=== PATIENT | male | born 1995 | race Two or more races ===

== ENCOUNTER 2024-07-06 00:22 | Emergency (ER) | payer MEDICAID, SELFPAY ==
[2024-07-06 00:24] VITALS: BMI 23.3
[2024-07-06 00:59] VITALS: BP 115/73; PULSE 85; RESP 18; TEMP 36.8; O2SAT 98
[2024-07-06] MEDS: NAPROXEN 250 MG TABLET 500 MG PO (01:55)
[2024-07-06] MEDS: AMOXICILLIN/POT CLAV 875 TABLET 1 TAB PO (01:56)
--- NOTE | 2024-07-06 05:39 | EDNOTE_ITS ---
Upper Extremity Injury RME/HPI General Chief Complaint: Hand/Wrist Problems Stated Complaint: S/P HAND SURGERY Time Seen by Provider: 07/06/24 01:38 Arrival date/time: 07/06/24 00:22 28M with no significant PMH presents to ED with K wire from hand surgery disappearing into skin today. Surgeon was Dr. Barbosa at [facility]. Patient noticed some pain and swelling. Patient has follow-up in 10 days. Limitations: no limitations Related Data Previous Rx's ?Medication ?Instructions ?Recorded amoxicillin 875 mg-potassium 1 tab PO BID 7 days #14 tabs 07/06/24 clavulanate 125 mg tablet Allergies Allergy/AdvReac Type Severity Reaction Status Date / Time No Known Allergies Allergy Verified 04/29/24 16:34 Review of Systems Review of Systems Systems Reviewed: All systems reviewed, normal except as documented Constitutional Constitutional: Reports system reviewed and no additional complaints, except as documented, Denies fever(s) and Denies headache(s) ENT Ears, Nose, Mouth, and Throat: Denies disequilibrium and Denies headache(s) Cardiovascular Cardiovascular: Reports system reviewed and no additional complaints, except as documented, Denies chest pain and Denies dyspnea Respiratory Respiratory: Reports system reviewed and no additional complaints, except as documented, Denies cough and Denies dyspnea Gastrointestinal Gastrointestinal: Reports system reviewed and no additional complaints, except as documented, Denies abdominal pain, Denies nausea and Denies vomiting Integumentary/Breasts Skin/Breast: Reports as per HPI and Reports skin pain Neurologic Neurologic: Reports system reviewed and no additional complaints, except as documented, Denies confusion, Denies disequilibrium and Denies headache(s) Psychiatric Psychiatric: Denies confusion Past Medical History Past Medical History NEUROLOGIC: Negative Neurological Disorders CARDIAC: Negative Cardiac Disorders or Congestive Heart Failure RESPIRATORY: Negative Chronic Obstructive Pulmonary Disease (COPD) GENITOURINARY: Negative Renal Disease ENDOCRINE: Negative Diabetes Mellitus Type 1 or Diabetes Mellitus Type 2 Social History SMOKING STATUS: Never smoker ED Exam General Limitations: Present no limitations General appearance: Present alert and in no apparent distress Head Head exam: Present atraumatic Eye Eye exam: Present normal appearance, PERRL and EOMI ENT ENT exam: Present normal exam, normal oropharynx and mucous membranes moist Neck Neck exam: Present normal inspection, full ROM and trachea midline Chest Chest inspection: Present normal inspection and symmetric chest wall rise Respiratory Respiratory exam: Present normal lung sounds bilaterally Cardiovascular Cardiovascular exam: Present regular rate, normal rhythm and normal heart sounds Abdominal Exam Abdominal exam: Present soft and normal bowel sounds Extremities Exam Extremities exam: Present full ROM Expanded Upper Extremity Exam Hand exam: Present full ROM (R), tenderness, swelling and erythema Back Exam Back exam: Present normal inspection and full ROM Neurological Exam Neurological exam: Present alert, oriented X3 and CN II-XII intact Psychiatric Psychiatric exam: Present normal affect and normal mood Skin Skin exam: Present warm, dry, intact and normal color Course Quality Measures none Orders Category Date Time Status Amoxicillin/Pot Clav 875 [Augmentin 875] Med 07/06/24 01:51 Discontinued 1 tab PO X1 ONE Naproxen [Naprosyn] Med 07/06/24 01:51 Discontinued 500 mg PO X1 ONE Vital Signs Vital signs: Vital Signs Temperature 98.2 F 07/06/24 00:59 Pulse Rate 85 07/06/24 00:59 Respiratory Rate 18 07/06/24 00:59 Blood Pressure 115/73 07/06/24 00:59 Pulse Oximetry (%) 98 07/06/24 00:59 Oxygen Delivery Method Room Air 07/06/24 00:59 O2 at 98% on RA and WNLs Extremity Injury MDM Narrative MDM Narrative:: 28M with no significant PMH presents to ED with K wire from hand surgery disappearing into skin today. Surgeon was Dr. Barbosa at [facility] [place]. Patient noticed some pain and swelling. Patient has follow-up in 10 days. Physical exam reveals mild R hand swelling, tenderness, and redness. ROM intact. Patient is afebrile, calm, and alert. Spoke to Dr. Solano, Dr. Barbosa's partner, who suggests Augmentin and outpatient follow-up. Patient data External records reviewed:: [facility] previous records Clinical information provided by:: patient Social determinants that could affect healthcare access:: none Patient has the following chronic illnesses:: none How is presenting disease/condition affected by chronic disease/condition?: no chronic disease Evaluation data The following diagnostics were reviewed and interpreted by me:: other (specify) (none) Lab and/or radiology exams considered but not ordered:: not ordered Interpretation Summary: n/a Medications / Prescriptions Medications or Prescriptions considered but not ordered:: ordered Medication administrations:: Medication Administration History Discontinued Medications Amoxicillin/Clavulanate Potassium (Amoxicillin/Pot Clav 875 Tablet) 1 tab PO X1 ONE Stop: 07/06/24 01:52 Last Admin: 07/06/24 01:56 Dose: 1 tab Documented By: ELENA Naproxen (Naproxen 250 Mg Tablet) 500 mg PO X1 ONE Stop: 07/06/24 01:52 Last Admin: 07/06/24 01:55 Dose: 500 mg Documented By: ELENA above Consultations Consultation(s) initiated? (list below): Yes Diagnosis Upper Extremity Injury Differential Diagnosis: sprain and strain of wrist, fracture of wrist, finger sprain, dislocation of finger, Colles' fracture, fracture of hand, dislocation of shoulder, fracture of humerus, fracture of clavicle and other (postop exam) Most likely diagnosis given after review of the tests above:: postop exam Admission Indicated Admission indicated?: not indicated Admission Request Was there a request for admission?: No Disposition Plan Disposition Plan: Discharge Discharge Attestation Discharge Attestation: The patient and all family members were given an opportunity to ask questions and understood the discharge instructions. Discharge instructions specifically effects, indications for sooner follow up or return to the emergency department, and the expected course of current diagnosis. Patient condition: Stable Discharge Plan Plan Patient Disposition: HOME (Self Care) Disposition Comment: Stable Prescriptions/Referrals Prescriptions/Med Rec: New amoxicillin-pot clavulanate 875-125 mg tablet 1 tab PO BID 7 Days Qty: 14 0RF Problem List Clinical Impression: Postoperative examination Patient/Caregiver Discharge Instructions Education Materials: ED Wound Check (No Infection) Additional Instructions: Please follow-up with PCP within 24-48 hours and return immediately if symptoms worsen. Print Language: Honduran Stand Alone Forms: Patient Portal Info Letter JUAN/SHRUTHI Supervising Physician JUAN/SHRUTHI Supervising Physician: Dr. Hernandez
== END 2024-07-06 01:58 | disposition home or self-care (01) ==
LOC: SERX 02:10
PROVIDERS: Emergency Provider Emergency Medicine; PCP Family Medicine
DX: Z47.89 Encounter for other orthopedic aftercare (principal)
CPT/HCPCS: 80053; 83605; 84145; 85025; 99283; A9270

== ENCOUNTER → 2024-07-13 | Outpatient (CLI) | payer MEDICAID, SELFPAY ==
--- NOTE | 2024-07-13 10:47 | XR_ITS ---
Examination: Hand, right 3 views Technique: Hand AP, oblique, lateral 3 views Date and time of exam: July 13, 2024 1056 hours Comparison May 10, 2024 INDICATIONS: Acute fracture proximal phalanx third digit May 10, 2024, postop reduction internal fixation FINDINGS: Significant healing fracture proximal phalanx third digit with stable and satisfactory alignment Orthopedic hardware satisfactory position IMPRESSION: Significant healing fracture proximal phalanx third digit with stable and satisfactory alignment
--- NOTE | 2024-07-13 10:47 | XR_ITS ---
Examination: Wrist, right 3 views Technique: Wrist AP, oblique, lateral 3 views Date and time of exam: July 13, 2024 1056 hours Comparison May 10, 2024 INDICATIONS: History acute fracture proximal phalanx third digit May 10, 2024 wrist and hand pain FINDINGS: Mild osteopenia. No wrist fracture or dislocation IMPRESSION: No wrist fracture or dislocation
== END | disposition home or self-care (01) ==
PROVIDERS: PCP Nurse Practitioner Gerontology; Referring Provider Nurse Practitioner Gerontology; Visit Provider Nurse Practitioner Gerontology
DX: S62.612A Displaced fracture of proximal phalanx of right middle finger, initial encounter for closed fracture (principal); X58.XXXA Exposure to other specified factors, initial encounter
CPT/HCPCS: 73110; 73130

== ENCOUNTER 2024-08-07 14:00 | Outpatient (RCR) | payer MEDICAID, SELFPAY ==
--- NOTE | 2024-07-18 13:15 | PTNOTE_ITS ---
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 Pt reports stiffness with bending the finger and difficulty gripping. This limits HH chore tolerance. 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 Pt requires skilled therapy in order to meet goals and has good rehab potential. Short Term and Care Home Goals 1. Ind with HEP 2. Improved digit flexion to 90 deg MCP, PIP and 80 deg DIP to make full fist 3. Full extension of long finger 4. Improved home health outreach coordinator strength to at least 45 lbs on R Treatment Plan ? 1. Manual therapy ? 2. Therex ? 3. Modalities as indicated, moist heat, ice, estim Frequency and Duration: 2x a week for 12 visits plus eval Certification Dates: 07/18/24 to 10/14/24 Procedure Charges OP PT Eval Mod Complex 30 minutes: Yes
--- NOTE | 2024-07-23 12:05 | PT.ODAYNRPT ---
PT Outpatient Daily Note OP Daily Note Outpatient Physical Therapy Treatment Date: 07/23/24 Visit Reasons: RIGHT LONG FINGER PAIN Subjective: Doing HEP, limited long digit flexion Objective: See F/S for therex MT: PROM into long digit flexion x5' Assessment: Improved flexion of R long finger after manual therapy Plan: Continue per POC Length of Time (minutes) of Treatment: 30 Minutes Procedure Charges Therapeutic Exercise 30 minutes: Yes
--- NOTE | 2024-08-07 14:30 | PT.ODAYNRPT ---
PT Outpatient Daily Note OP Daily Note Outpatient Physical Therapy Treatment Date: 08/07/24 Visit Reasons: RIGHT LONG FINGER PAIN Subjective: Pt reports L finger continues to be stiff. Objective: Please see flow sheet for ther ex list. Assessment: Performed PROM into digit flexion to pt tolerance. Pt encouraged to continue with manual stretches for HEP and to look into getting a instructional support technician ball for daily use. Plan: Continue with POc. Length of Time (minutes) of Treatment: 30 Minutes Procedure Charges Therapeutic Exercise 30 minutes: Yes
== END 2024-08-10 23:59 | disposition home or self-care (01) ==
LOC: CPTX 14:00
PROVIDERS: PCP Surgery; Referring Provider Surgery; Visit Provider Surgery
DX: M79.644 Pain in right finger(s) (principal); M25.531 Pain in right wrist; M79.641 Pain in right hand; X58.XXXD Exposure to other specified factors, subsequent encounter; S62.612D Displaced fracture of proximal phalanx of right middle finger, subsequent encounter for fracture with routine healing
CPT/HCPCS: 97110; 97162

== ENCOUNTER 2025-03-06 13:36 | Emergency (ER) | payer MEDICAID, SELFPAY ==
[2025-03-06 13:47] VITALS: BP 130/74; PULSE 60; RESP 16; TEMP 36.7; O2SAT 99
--- NOTE | 2025-03-06 13:50 | PD.EDANIML ---
ED Animal Bite RME/HPI General Chief Complaint: Animal Bite Stated Complaint: ANIMAL BITE; WANTS RABIES SHOT Time Seen by Provider: 03/06/25 13:50 Arrival date/time: 03/06/25 13:36 29-year-old male with no significant medical problems presents to the Emergency Department today stating 2 days ago he was walking by a house and the dog ran out of the fence and bit his left leg patient came to the ER for further evaluation Limitations: no limitations Related Data Previous Rx's ?Medication ?Instructions ?Recorded amoxicillin 875 mg-potassium 1 tab PO BID 5 days #10 tabs 03/06/25 clavulanate 125 mg tablet ibuprofen 600 mg tablet 600 mg PO Q6H #30 tabs 03/06/25 Allergies Allergy/AdvReac Type Severity Reaction Status Date / Time No Known Allergies Allergy Verified 03/06/25 13:39 Review of Systems Review of Systems Systems Reviewed: All systems reviewed, normal except as documented Constitutional Constitutional: Reports system reviewed and no additional complaints, except as documented, Denies fever(s) and Denies headache(s) Eyes Eyes: Reports system reviewed and no additional complaints, except as documented and Denies blurry vision ENT Ears, Nose, Mouth, and Throat: Reports system reviewed and no additional complaints, except as documented, Denies headache(s), Denies nasal congestion and Denies nasal discharge Cardiovascular Cardiovascular: Reports system reviewed and no additional complaints, except as documented, Denies chest pain and Denies dyspnea Respiratory Respiratory: Reports system reviewed and no additional complaints, except as documented, Denies chest congestion, Denies cough and Denies dyspnea Gastrointestinal Gastrointestinal: Reports system reviewed and no additional complaints, except as documented and Denies abdominal pain Musculoskeletal Musculoskeletal: Reports system reviewed and no additional complaints, except as documented, Denies deformity, Denies numbness, Reports stiffness, Denies tingling and Reports other (dog bite left leg) Integumentary/Breasts Skin/Breast: Reports system reviewed and no additional complaints, except as documented and Denies rash Neurologic Neurologic: Reports system reviewed and no additional complaints, except as documented, Reports as per HPI, Denies headache(s), Denies numbness and Denies tingling Past Medical History Past Medical History NEUROLOGIC: Negative Neurological Disorders CARDIAC: Negative Cardiac Disorders or Congestive Heart Failure RESPIRATORY: Negative Chronic Obstructive Pulmonary Disease (COPD) GENITOURINARY: Negative Renal Disease ENDOCRINE: Negative Diabetes Mellitus Type 1 or Diabetes Mellitus Type 2 Social History SMOKING STATUS: Never smoker ED Exam General Limitations: Present no limitations General appearance: Present alert and in no apparent distress Head Head exam: Present atraumatic Eye Eye exam: Present normal appearance, PERRL and EOMI ENT ENT exam: Present normal exam, normal oropharynx and mucous membranes moist Neck Neck exam: Present normal inspection, full ROM and trachea midline Chest Chest inspection: Present normal inspection and symmetric chest wall rise Respiratory Respiratory exam: Present normal lung sounds bilaterally Cardiovascular Cardiovascular exam: Present regular rate, normal rhythm and normal heart sounds Abdominal Exam Abdominal exam: Present soft and normal bowel sounds Extremities Exam Extremities exam: Present normal inspection and full ROM Back Exam Back exam: Present normal inspection and full ROM Neurological Exam Neurological exam: Present alert, oriented X3 and CN II-XII intact Psychiatric Psychiatric exam: Present normal affect and normal mood Skin Skin exam: Present warm, dry and other (Dog bite left leg) Course Quality Measures none Vital Signs Vital signs: Vital Signs Temperature 98.1 F 03/06/25 13:47 Pulse Rate 60 03/06/25 13:47 Respiratory Rate 16 03/06/25 13:47 Blood Pressure 130/74 03/06/25 13:47 Pulse Oximetry (%) 99 03/06/25 13:47 Oxygen Delivery Method Room Air 03/06/25 13:47 O2 saturation 9 9% room air within normal limits Animal Bite MDM Narrative MDM Narrative:: 29-year-old male with no significant medical problems presents to the Emergency Department today stating 2 days ago he was walking by a house and the dog ran out of the fence and bit his left leg patient came to the ER for further evaluation On exam patient well-appearing patient does not appear ill or toxic no acute distress On exam patient has mild bruising and superficial dog bite to the left knee patient does have full range of motion left knee no evidence of infection. Patient treated course of antibiotics As a dog ran out of a household this was not a stray dog I do not believe a rabies vaccination is necessary at this time patient agrees Patient discharged home in no distress to follow-up with primary care doctor in the next 24 to 48 hours and for any worsening symptoms to return to the ER immediately Patient data External records reviewed:: [facility] previous records Clinical information provided by:: patient Social determinants that could affect healthcare access:: none Patient has the following chronic illnesses:: None How is presenting disease/condition affected by chronic disease/condition?: no chronic disease Evaluation data The following diagnostics were reviewed and interpreted by me:: other (specify) (N/A) Lab and/or radiology exams considered but not ordered:: Considered not indicated Interpretation Summary: N/A Medications / Prescriptions Medications or Prescriptions considered but not ordered:: Given Medication administrations:: Given Consultations Consultation(s) initiated? (list below): No Diagnosis Differential diagnosis animal bite: bite by animal, dog bite and rabies contact Most likely diagnosis given after review of the tests above:: Dog bite I am Admission Indicated Admission indicated?: not indicated Admission Request Was there a request for admission?: No Disposition Plan Disposition Plan: Discharge Discharge Attestation Discharge Attestation: The patient and all family members were given an opportunity to ask questions and understood the discharge instructions. Discharge instructions specifically effects, indications for sooner follow up or return to the emergency department, and the expected course of current diagnosis. Patient condition: Stable Discharge Plan Plan Patient Disposition: HOME (Self Care) Discharge Disposition comment: Stable Prescriptions/Referrals Prescriptions/Med Rec: New ibuprofen 600 mg tablet 600 mg PO Q6H Qty: 30 0RF amoxicillin-pot clavulanate 875-125 mg tablet 1 tab PO BID 5 Days Qty: 10 0RF Problem List Clinical Impression: Dog bite Patient/Caregiver Discharge Instructions Education Materials: ED Dog Bite Additional Instructions: Please follow up with your primary care doctor in the next 24-48hrs for any worsening symptoms return here immediately Print Language: Malawian Stand Alone Forms: Charmaine Award Info., Patient Portal Info Letter JUAN/SHRUTHI Supervising Physician PA/SHRUTHI Supervising Physician: dr person
== END 2025-03-06 15:40 | disposition home or self-care (01) ==
LOC: SERX 13:57
PROVIDERS: Emergency Provider Emergency Medicine; PCP Family Medicine
DX: S80.272A Other superficial bite of left knee, initial encounter (principal); W54.0XXA Bitten by dog, initial encounter; Y93.01 Activity, walking, marching and hiking; Y92.009 Unspecified place in unspecified non-institutional (private) residence as the place of occurrence of the external cause
CPT/HCPCS: 99281